=== PATIENT | female | born 1985 | race African-American/Black ===

== ENCOUNTER 2017-10-09 04:05 | Emergency (ER) | payer SELFPAY, OTHER | END 2017-10-09 05:59 | disposition home or self-care (01) | LOC: ER 04:05 | DX: S01.01XA Laceration without foreign body of scalp, initial encounter (principal); V43.52XA Car driver injured in collision with other type car in traffic accident, initial encounter; Y93.I9 Activity, other involving external motion; Y92.410 Unspecified street and highway as the place of occurrence of the external cause; Y99.8 Other external cause status | CPT/HCPCS: 12001; 70450; 72125; 99284-25 ==

== ENCOUNTER 2017-11-22 16:03 | Emergency (ER) | payer OTHER ==
[2017-11-22 19:30] LABS: URINE HCG POC HCG NEGATIVE (Negative)
== END 2017-11-22 20:30 | disposition home or self-care (01) ==
LOC: ER 20:30
DX: S02.2XXA Fracture of nasal bones, initial encounter for closed fracture (principal); Y08.89XA Assault by other specified means, initial encounter; Y93.89 Activity, other specified; Y99.8 Other external cause status; Y92.89 Other specified places as the place of occurrence of the external cause
CPT/HCPCS: 70450; 70486; 81025; 99284-25